=== PATIENT | female | born 2000 ===

== ENCOUNTER → 2024-06-06 12:25 | Outpatient (CLI) | payer OTHER, SELFPAY ==
--- NOTE | 2024-06-06 15:34 | DIET.OUTPTC ---
Dietary Outpatient Consultation Note Consultation Date: 06/06/2024 Assessment: 23 y F referred to dietitian for obesity. Jenna reports weight gain within the past year after starting citalopram in Sep 2023, is interested in starting meal prepping again and going to the gym (preference: weight lifting). Has questions regarding appropriate caloric and protein needs. Diet recall: skips breakfast L-pasta/leftovers or can of tuna + sims + ritz crackers D-takeout 3x/wk, boyfriend cooks (4 oz baked chicken & rice, salmon, shrimp) cooks with grapeseed oil snacks: chips desserts: ice cream Beverages: 40 oz water, 16 oz 0 sugar soda Physical activity: walking dog Denies experiencing N/V/D/C, heartburn. Denies food related allergies. Ht: 5 ft 3 in (160 cm) Wt: 210 lb (95.45 kg) BMI: 37.2 UBW: 150 lb ~ 2+ yrs ago Nutrition Diagnosis: Food and nutrition related knowledge deficit r/t limited previous nutrition educ aeb pt assessment, questions on appropriate nutritional needs Excessive energy intake r/t energy dense foods choices aeb diet recall w/ takeout 3x/wk Interventions: 1. Nutrient dense meals -Educ on balanced meals, macros, fiber, label reading -Reviewed pt's meal plans for meal prep to ensure adequate composition -Goal setting with HI 2. Physical activity -Reviewed moderate level intensity, kcal/protein needs w/ activity -Goals setting with HI Goals: Pt driven 1. Gym 3-5x/wk for weight lifting w/ 2 30 minutes walking or elliptical cardio sessions w/ use of recording PRs for continued engagement 2. Meal prep 3-5x/wk with protein+carb+veg on weekend 3. Protein shake for breakfast/post work Monitoring/Evaluations: goals, diet recall, labs Electronically Signed by: Mony Velez 06/06/24 15:34 Clinical Dietitian [address] [id number]
== END ==
LOC: DIET 12:28
PROVIDERS: PCP Nurse Practitioner Family; Referring Provider Nurse Practitioner Family
DX: E66.9 Obesity, unspecified (principal); Z68.37 Body mass index [BMI] 37.0-37.9, adult; Z71.3 Dietary counseling and surveillance
CPT/HCPCS: 97802